=== PATIENT | female | born 1970 | race African-American/Black ===

== ENCOUNTER 2018-05-28 15:52 | Observation (INO) ==
--- NOTE | 2018-05-28 16:46 | ED ---
HPI General Chief Complaint: Neuro Symptoms/Deficit Stated Complaint: Sudden Blindness Time Seen by Provider: 05/28/18 16:23 Source: patient Mode of arrival: ambulatory Limitations: no limitations History of Present Illness HPI Narrative: 47-year-old female that presents to the ED for evaluation of double vision as well as ptosis of the right eyelid. Per patient she has had the drooping of the right eyelid for about 6 months and is becoming more constant. Per patient she went to see her eye doctor today because she has been having some double vision as well as blurriness from the right eye. No symptoms to the left eye. She was seen and evaluated by Dr. Kellogg from [facility] [place] and had a workup for visual examination. Patient was evaluated and per his recommendations he is concerned about possible neurological changes. He did not see anything from the eye standpoint. He actually wrote a note on prescription pad stating that he wants the patient to be evaluated for narrow. He is concerned also because patient has a history of sickle cell disease. Patient denies any pain. Patient denies any other medical issues. Symptoms started since yesterday when she woke up around 6:00 in the morning. Symptoms have continued which is where part of her evaluation by her eye doctor. Denies wearing contacts or glasses. No pain of any kind. No history of CVA or ACS. Has not seen anybody for this. No other medical issues. Related Data Home Medications Medication Instructions Recorded Confirmed hydromorphone 1 mg PO Q6HR PRN 05/28/18 05/28/18 multivitamin 1 cap PO QAM 05/28/18 05/28/18 Allergies Allergy/AdvReac Type Severity Reaction Status Date / Time guaifenesin Allergy Severe Swelling Verified 05/28/18 16:41 Review of Systems ROS: all other systems reviewed are negative [facility] Medical History Medical History Acute hematogenous osteomyelitis of foot (Acute) Sickle cell anemia (Acute) Surgical History Surgical History History of incision and drainage (Acute) Hx of cholecystectomy (Acute) Social History Social History Substance History: No History of Abuse Second Hand Smoke Exposure: No Smoking Status: Never smoker How Often Do You Have a Drink Containing Alcohol: Never Recent Out of Country Travel within the Last 8 Weeks: No Immunization History Tetanus Immunization: >5 Years Exam Narrative Exam Narrative: GENERAL: Well appearing. SKIN: Focused skin assessment warm/dry. HEAD: Atraumatic. Normocephalic. EYES: Pupils equal and round dilated at 6 cm, patient did have an eye exam today. No scleral icterus. No injection or drainage. EOM intact bilaterally. Patient does have ptosis to the right upper eyelid. Peripheral vision intact bilaterally although she does have some deficits especially with the right on the right upper field with double vision. ENT: No nasal bleeding or discharge. Mucous membranes pink and moist. Tongue is midline. No uvula deviation. NECK: Trachea midline. No JVD. CARDIOVASCULAR: Regular rate and rhythm. No murmur appreciated. RESPIRATORY: No accessory muscle use. Clear to auscultation. Breath sounds equal bilaterally. GASTROINTESTINAL: Abdomen soft, non-tender, nondistended. Hepatic and splenic margins not palpable. MUSCULOSKELETAL: No obvious deformities. No clubbing. No cyanosis. No edema. Full range of motion of the upper and lower extremities bilaterally. 2+ pulses bilaterally. NEUROLOGICAL: Awake and alert. No obvious cranial nerve deficits. Motor grossly within normal limits. Normal speech. PSYCHIATRIC: Appropriate mood and affect; insight and judgment normal. Course Initial Documented Vital Signs Temperature 99.4 F 05/28/18 16:11 Pulse Rate 78 05/28/18 16:11 Respiratory Rate 16 05/28/18 16:11 Blood Pressure 147/70 H 05/28/18 16:11 Pulse Oximetry 97 05/28/18 16:11 Last Documented Vital Signs Temperature 98.6 F 05/28/18 20:00 Pulse Rate 65 05/28/18 20:00 Respiratory Rate 16 05/28/18 20:00 Blood Pressure 149/68 H 05/28/18 20:00 Pulse Oximetry 98 05/28/18 20:00 Medical Decision Making ELVIN Attestation ELVIN supervised visit: Yes Attestation: I, Dr. Rose, have reviewed the advance practice practitioner's documentation and am in agreement, met with the patient face to face, made the diagnosis, and the medical decision making was done by me. *My assessment and Findings: Patient is a 47-year-old female who presents with complaint of vision changes for greater than last 24 hours. She reports double vision which worsens with the right eye when she looks towards the right. At rest she appears as though she has a nerve palsy but extraocular movements are actually intact. No numbness nor weakness to the extremities and no dysmetria. Visual jimenez are also intact. She was seen by an training consultant prior to arrival who is been sent her here. She has been admitted for stroke/TIA workup. [facility] Narrative Medical decision making narrative: 47-year-old female that presents to the ED for evaluation of neurological deficits. Patient was properly examined and was found to have signs and symptoms of unclear etiology. There is some concern for CVA has patient does have sickle cell and apparently has new visual deficits. At this time labs and imaging were ordered. No stroke level because patient has symptoms for more than 24 hours and symptoms started around 6:00 last morning. Labs and imaging showed no sign of acute disease at this time. Recommendation at this time is for admission. Case was discussed with my attending who agrees with plan. Case discussed with the patient agrees with plan. Patient was admitted to Dr. Lema admission to his service for CVA and TIA workup. Medical Screen Exam Complete: Yes Emergency Medical Condition: Yes Differential Diagnosis Differential Diagnosis: TIA versus CVA versus hemianopsia versus tumor Medical Records Medical records reviewed: Yes I reviewed the patient's medical records. Lab Data Lab results reviewed: Yes I reviewed the patient's lab results. Result diagrams: 05/28/18 16:45 05/28/18 16:45 Lab Results 05/28/18 05/28/18 05/28/18 Range/Units 16:45 16:45 16:45 WBC 12.4 H (4.0-11.0) th/mm3 RBC 2.10 L (4.00-5.30) mil/mm3 Hgb 8.3 L (11.6-15.3) gm/dL Hct 23.0 L (35.0-46.0) % MCV 109.5 H (80.0-100.0) fL MCH 39.6 H (27.0-34.0) pg MCHC 36.1 H (32.0-36.0) % RDW 22.4 H (11.6-17.2) % Plt Count 534 H (150-450) th/mm3 MPV 7.0 (7.0-11.0) fL Prelim Diff (Auto) Slide review pending Neut % (Auto) 53.8 (16.0-70.0) % Lymph % (Auto) 34.0 (9.0-44.0) % Waller % (Auto) 9.4 H (0.0-8.0) % Eos % (Auto) 1.7 (0.0-4.0) % Baso % (Auto) 1.1 (0.0-2.0) % Neut # (Auto) 6.7 (1.8-7.7) th/mm3 Lymph # (Auto) 4.2 (1.0-4.8) th/mm3 Waller # (Auto) 1.2 H (0.0-0.9) th/mm3 Eos # (Auto) 0.2 (0.0-0.4) th/mm3 Baso # (Auto) 0.1 (0.0-0.2) th/mm3 WBC Differential Manual diff final Seg Neuts % (Manual) 54 (16-70) % Lymphocytes % (Manual) 33 (9-44) % Monocytes % (Manual) 11 H (0-8) % Eosinophils % (Manual) 1 (0-4) % Basophils % (Manual) 1 (0-2) % Abs Neuts (Manual) 6.7 (1.8-7.7) th/mm3 Nucleated RBCs/100 WBC 6 H (0-0) /100 WBC Differential Comment . Toxic Vacuolation Present H (None) Platelet Estimate High H (Normal) Platelet Morphology Enlarged H (Normal) Polychromasia 2.5 H (0.0-1.9) % Sickle Cells 2+ H (None) Stomatocytes 1+ H (None) Retic Count 16.1 H (0.4-3.0) % Absolute Retic 337.3 H (20.0-150.0) mil/L PT 11.4 (9.8-11.6) sec INR 1.1 Ratio APTT 20.3 L (23.4-31.7) sec Sodium 141 (136-145) meq/L Potassium 3.4 L (3.5-5.1) meq/L Chloride 110 H (98-107) meq/L Carbon Dioxide 22.9 (21.0-32.0) meq/L Anion Gap 8 (5-15) meq/L BUN 8 (7-18) mg/dL Creatinine 0.63 (0.50-1.00) mg/dL Estimated GFR Greater than 89 (>89) mL/min Random Glucose 87 (74-106) mg/dL Calcium 9.2 (8.5-10.1) mg/dL Total Creatine Kinase 72 (26-192) U/L Troponin I Less than 0.02 L (0.02-0.05) ng/mL 05/28/18 Range/Units 16:45 WBC (4.0-11.0) th/mm3 RBC (4.00-5.30) mil/mm3 Hgb (11.6-15.3) gm/dL Hct (35.0-46.0) % MCV (80.0-100.0) fL MCH (27.0-34.0) pg MCHC (32.0-36.0) % RDW (11.6-17.2) % Plt Count (150-450) th/mm3 MPV (7.0-11.0) fL Prelim Diff (Auto) Neut % (Auto) (16.0-70.0) % Lymph % (Auto) (9.0-44.0) % Waller % (Auto) (0.0-8.0) % Eos % (Auto) (0.0-4.0) % Baso % (Auto) (0.0-2.0) % Neut # (Auto) (1.8-7.7) th/mm3 Lymph # (Auto) (1.0-4.8) th/mm3 Waller # (Auto) (0.0-0.9) th/mm3 Eos # (Auto) (0.0-0.4) th/mm3 Baso # (Auto) (0.0-0.2) th/mm3 WBC Differential Seg Neuts % (Manual) (16-70) % Lymphocytes % (Manual) (9-44) % Monocytes % (Manual) (0-8) % Eosinophils % (Manual) (0-4) % Basophils % (Manual) (0-2) % Abs Neuts (Manual) (1.8-7.7) th/mm3 Nucleated RBCs/100 WBC (0-0) /100 WBC Differential Comment Toxic Vacuolation (None) Platelet Estimate (Normal) Platelet Morphology (Normal) Polychromasia (0.0-1.9) % Sickle Cells (None) Stomatocytes (None) Retic Count Cancelled (0.4-3.0) % Absolute Retic Cancelled (20.0-150.0) mil/L PT (9.8-11.6) sec INR Ratio APTT (23.4-31.7) sec Sodium (136-145) meq/L Potassium (3.5-5.1) meq/L Chloride (98-107) meq/L Carbon Dioxide (21.0-32.0) meq/L Anion Gap (5-15) meq/L BUN (7-18) mg/dL Creatinine (0.50-1.00) mg/dL Estimated GFR (>89) mL/min Random Glucose (74-106) mg/dL Calcium (8.5-10.1) mg/dL Total Creatine Kinase (26-192) U/L Troponin I (0.02-0.05) ng/mL Imaging Data Attestation: I personally reviewed and interpreted this imaging study as follows : Radiologist's impression: Head CT 05/28/18 16:23 CONCLUSION: 1. Negative noncontrast head CT. . Discharge Plan Discharge Disposition Patient Disposition: ED Admit(ED Internal Use Only) Discharge Order Discharge Orders: ED Use Only Admit Order (Routine); Ordered 05/28/18 Ordered By: Adan Hong Discharge Details Diagnosis: Transient cerebral ischemia Physicians Team ED Provider: Makeda Rose ED Midlevel Provider: Adan Hong Primary Care Provider: Primary Care Ramakrishnai,Adriane Attending Provider: Joseluis Lema Other Providers: Williams Mclean ED Status: Left Department Discharge Information Discharge Date/Time: 05/28/18 20:24
--- NOTE | 2018-05-28 17:08 | CT ---
EXAM DATE: 05/28/2018 5:05 PM EST AGE/SEX: 47 years / Female INDICATIONS: Vision problems. Headache. CLINICAL DATA: This is the patient's initial encounter. Patient reports that signs and symptoms have been present for 1 day and indicates a pain score of 5/10. MEDICAL/SURGICAL HISTORY: None. None. RADIATION DOSE: 34.64 CTDI (mGy) COMPARISON: No prior exams available for comparison. TECHNIQUE: CT of the head without contrast. Using automated exposure control and adjustment of the mA and/or kV according to patient size, radiation dose was kept as low as reasonably achievable to ob tain optimal diagnostic quality images. DICOM format image data is available electronically for revi ew and comparison. FINDINGS: Cerebrum: The ventricles are normal for age. No evidence of midline shift, mass lesion, hemorrhage or acute infarction. No extraaxial fluid collections are seen. Posterior Fossa: The cerebellum and brainstem are intact. The 4th ventricle is midline. The cerebe llopontine angle is unremarkable. Extracranial: The visualized portion of the orbits is intact. Skull: The calvaria is intact. No evidence of skull fracture. CONCLUSION: 1. Negative noncontrast head CT. . Electronically signed by: Butch Boateng MD 05/28/2018 5:06 PM EST
[2018-05-28 17:35] LABS: Baso # (Auto) 0.1 th/mm3 (0.0-0.2); Baso % (Auto) 1.1 % (0.0-2.0); Eos # (Auto) 0.2 th/mm3 (0.0-0.4); Eos % (Auto) 1.7 % (0.0-4.0); Hemoglobin 8.3 gm/dL (11.6-15.3); Lymph # (Auto) 4.2 th/mm3 (1.0-4.8); Mean Corpuscular Hemoglobin 39.6 pg (27.0-34.0); Mean Corpuscular Volume 109.5 fL (80.0-100.0); Mono # (Auto) 1.2 th/mm3 (0.0-0.9); Mono % (Auto) 9.4 % (0.0-8.0); Neut # (Auto) 6.7 th/mm3 (1.8-7.7); Neut % (Auto) 53.8 % (16.0-70.0); Platelet Count 534 th/mm3 (150-450); Red Cell Distribution Width 22.4 % (11.6-17.2); Reticulocyte Percent 16.1 % (0.4-3.0); White Blood Count 12.4 th/mm3 (4.0-11.0)
[2018-05-28 17:50] LABS: Activated Partial Thrombo Time 20.3 sec (23.4-31.7); INR 1.1 Ratio; Prothrombin Time 11.4 sec (9.8-11.6)
[2018-05-28 17:55] LABS: Mean Corpuscular HGB Conc 36.1 % (32.0-36.0)
[2018-05-28 18:00] LABS: Anion Gap 8 meq/L (5-15); Blood Urea Nitrogen 8 mg/dL (7-18); Calcium 9.2 mg/dL (8.5-10.1); Carbon Dioxide 22.9 meq/L (21.0-32.0); Chloride 110 meq/L (98-107); Glomerular Filtration Rate Greater Than 89 mL/min (>89); Glucose,Random 87 mg/dL (74-106); Potassium 3.4 meq/L (3.5-5.1); Sodium 141 meq/L (136-145)
[2018-05-28 18:26] LABS: Creatine Kinase 72 U/L (26-192)
[2018-05-28] MEDS ORDERED: Dextrose 50% in Water 50 ML Vial IV.PUSH PRN (18:41)
[2018-05-28 18:47] LABS: Eosinophils 1 % (0-4); Lymphocytes 33 % (9-44); Monocytes 11 % (0-8); Tallied Nucleated RBC 6 (0-0)
[2018-05-28 18:49] LABS: Toxic Vacuolation Present
[2018-05-28] MEDS ORDERED: Bisacodyl 10 MG Supp RECTAL PRN (18:49)
[2018-05-28] MEDS ORDERED: Acetaminophen 325 MG Tablet PO PRN (18:49)
[2018-05-28 18:56] LABS: Polychromasia 2.5 % (0.0-1.9)
[2018-05-28 18:57] LABS: Sickle Cells 2+; Stomatocytes 1+
--- NOTE | 2018-05-28 18:58 | P.HPIM ---
History of Present Illness Primary Care Physician: No Primary Care Physician Chief Complaint: Double vision History of Present Illness: This is a 47-year-old female with a history of sickle cell disease. She was sent by her integration technician to be evaluated for possible stroke. Patient complained of blurred vision for the past 2 days and today complained of double vision. She also has intermittent ptosis involving the right eye for the past 6 months. She had a formal evaluation by Dr. Kellogg who felt she needs neurologic workup. Patient found to have normal eye findings. Denies fever, chills, dizziness, headache, swallowing difficulty, slurred speech, nausea, numbness and no focal weakness. Head CT without acute cardio findings. EKG independently reviewed by me with no sinus rhythm no ST changes.All other systems reviewed negative Review of Systems Review of Systems: all other systems reviewed are negative [facility] Medical History Medical History Acute hematogenous osteomyelitis of foot (Acute) Sickle cell anemia (Acute) Surgical History Surgical History History of incision and drainage (Acute) Hx of cholecystectomy (Acute) Family History Family History Other Hypertension Social History Social History Substance History: No History of Abuse Smoking Status: Never smoker How Often Do You Have a Drink Containing Alcohol: Never Recent Out of Country Travel within the Last 8 Weeks: No Immunization History Tetanus Immunization: >5 Years Medications and Allergies Allergies Allergy/AdvReac Type Severity Reaction Status Date / Time guaifenesin Allergy Severe Swelling Verified 05/28/18 16:41 Home Medications Medication Instructions Recorded Confirmed Type hydromorphone 1 mg PO Q6HR PRN 05/28/18 05/28/18 History multivitamin 1 cap PO QAM 05/28/18 05/28/18 History Active Medications: Active Medications Acetaminophen (Tylenol) 650 mg PO Q4H PRN PRN Reason: Temp > 100.4 Al Hydroxide/Mg Hydroxide (Milk Of Magnpeace Liq) 30 ml PO Q12H PRN PRN Reason: Mild Constipation Aspirin (Aspirin) 325 mg PO DAILY CARRI Bisacodyl (Dulcolax Supp) 10 mg RECTAL DAILY PRN PRN Reason: SEVERE CONSITIPATION Dextrose (D50w Vial) 50 ml IV.PUSH UNSCH PRN PRN Reason: PER HYPOGLYCEMIA PROTOCOL Enalaprilat (Vasotec Inj) 1.25 mg IV.PUSH Q4H PRN PRN Reason: For SBP > 220 or DBP > 120 Folic Acid (Folic Acid) 1 mg PO DAILY CARRI Glucagon (Glucagon Inj) 1 mg OTHER UNSCH PRN PRN Reason: for Hypoglycemia Protocol Sodium Chloride (Ns Inj) 1,000 mls @ 70 mls/hr IV.CONT .[id number] [facility] Insulin Aspart (Novolog Insulin Correctional Sugar Inj) 0 unit SQ ACHS CARRI; Protocol Lactulose (Lactulose Liq) 30 ml PO DAILY PRN PRN Reason: SEVERE CONSITIPATION Multivitamins (Theragran) 1 tab PO DAILY CARRI Ondansetron HCl (Zofran Inj) 4 mg IV.PUSH Q6H PRN PRN Reason: NAUSEA OR VOMITING Potassium Chloride (K-Dur) 40 meq PO ONCE ONE Stop: 05/28/18 19:01 Senna/Docusate Sodium (Ciera-Colace) 1 tab PO BID [facility] Sennosides (Senokot) 17.2 mg PO Q12H PRN PRN Reason: Moderate Constipation Sodium Chloride (Ns Flush) 2 ml IV.FLUSH BID CARRI Sodium Chloride (Ns Flush) 2 ml IV.FLUSH UNSCH PRN PRN Reason: FLUSH AFTER USING IV ACCESS Physical Exam Vital signs: Last Vital Signs Temp 99.4 F 05/28/18 16:11 Pulse 68 05/28/18 18:45 Resp 18 05/28/18 18:45 BP 155/72 H 05/28/18 18:45 Pulse Ox 95 05/28/18 18:45 Intake & Output 05/26/18 05/27/18 05/28/18 05/29/18 06:59 06:59 06:59 06:59 Weight 63.503 kg Narrative: GENERAL: Well-developed, well-nourished in no distress SKIN: Warm and dry. HEAD: Atraumatic. Normocephalic. EYES: Pupils equal and round. No scleral icterus. No injection or drainage. ENT: No nasal bleeding or discharge. Mucous membranes pink and moist. NECK: Trachea midline. No JVD. CARDIOVASCULAR: Regular rate and rhythm. RESPIRATORY: No accessory muscle use. Clear to auscultation. Breath sounds equal bilaterally. GASTROINTESTINAL: Abdomen soft, non-tender, nondistended. MUSCULOSKELETAL: Extremities without clubbing, cyanosis, or edema. No obvious deformities. NEUROLOGICAL: Awake and alert. Right eye ptosis. Motor grossly within normal limits. Five out of 5 muscle strength in the arms and legs. Normal speech. PSYCHIATRIC: Appropriate mood and affect; insight and judgment normal. Results Labs CBC & Chem 7: 05/28/18 16:45 05/28/18 16:[address] 05/28/18 16:23 CONCLUSION: 1. Negative noncontrast head CT. . Caprini VTE Risk Assessment Caprini VTE Risk Assessment: No/Low Risk (score <= 1) Caprini Risk Assessment Model: Point Value = 1 Point Value = 2 Point Value = 3 Point Value = 5 Age 41-60 Minor surgery BMI > 25 kg/m2 Swollen legs Varicose veins or History of unexplained or recurrent spontaneous Oral contraceptives or hormone replacement Sepsis (< 1 month) Serious lung disease, including pneumonia (< 1 month) Abnormal pulmonary function Acute myocardial infarction Congestive heart failure (< 1 month) History of inflammatory bowel disease Medical patient at bed rest Age 61-74 Arthroscopic surgery Major open surgery (> 45 min) Laparoscopic surgery (> 45 min) Malignancy Confined to bed (> 72 hours) Immobilizing plaster cast Central venous access Age >= 75 History of VTE Family history of VTE Factor V Leiden Prothrombin [id number] Lupus anticoagulant Anticardiolipin antibodies Elevated serum homocysteine Heparin-induced thrombocytopenia Other congenital or acquired thrombophilia Stroke (< 1 month) Elective arthroplasty Hip, pelvis, or leg fracture Acute spinal cord injury (< 1 month) Prophylaxis Regimen: Total Risk Factor Score Risk Level Prophylaxis Regimen 0-1 Low Early ambulation 2 Moderate Order ONE of the following: *Sequential Compression Device (SCD) *Heparin 5000 units SQ BID 3-4 Higher Order ONE of the following medications: *Heparin 5000 units SQ TID *Enoxaparin/Lovenox 40 mg SQ daily (WT < 150 kg, CrCl > 30 mL/min) *Enoxaparin/Lovenox 30 mg SQ daily (WT < 150 kg, CrCl > 10-29 mL/min) *Enoxaparin/Lovenox 30 mg SQ BID (WT < 150 kg, CrCl > 30 mL/min) AND/OR *Sequential Compression Device (SCD) 5 or more Highest Order ONE of the following medications: *Heparin 5000 units SQ TID (Preferred with Epidurals) *Enoxaparin/Lovenox 40 mg SQ daily (WT < 150 kg, CrCl > 30 mL/min) *Enoxaparin/Lovenox 30 mg SQ daily (WT < 150 kg, CrCl > 10-29 mL/min) *Enoxaparin/Lovenox 30 mg SQ BID (WT < 150 kg, CrCl > 30 mL/min) AND *Sequential Compression Device (SCD) Assessment and Plan Plan This is a 47-year-old female with a history of sickle cell disease. She presents with visual complaints, blurred vision, double vision and ptosis of the right eye. She was sent by her integration technician to be evaluated for possible stroke. Head CT without acute cardio findings. Right eye ptosis with double/blurred vision in a patient with a history of sickle cell disease. Patient will be have neurologic workup which will include MRI of the head, MRA of the head, MRA of the neck, echocardiogram, lipid profile and A1c. We will also evaluate for myasthenia gravis. Start aspirin. Consult neurology, PT and speech therapy. We will also obtain swallowing evaluation. Urine drug screen Leukocytosis likely reactive. Will monitor Hypokalemia potassium 3.4. Replace with 40 mg p.o. potassium check magnesium Last monthly period May 21, 2018 DVT prophylaxis with SCD and early ambulate
[2018-05-28] MEDS: Aspirin 325 MG Tablet PO SCH (19:57)
[2018-05-29] MEDS: Senna/Docusate Sodium 8.6/50 MG Tablet PO SCH ×3 (00:40→21:43)
[2018-05-29] MEDS: Insulin NovoLOG Aspart Correctional Sugar Inj SQ SCH ×5 (00:40→21:59)
[2018-05-29] MEDS: Sod Chloride 0.9% Inj 1,000 ML IV.CONT SCH ×2 (00:51→11:00)
[2018-05-29 04:35] LABS: Amphetamine Screen,Urine Neg (Neg); Barbiturate Screen,Urine Neg (Neg); Cannabinoid Screen,Urine Neg (Neg); Cocaine Screen,Urine Neg (Neg)
[2018-05-29 04:37] LABS: Opiate Screen,Urine Neg (Neg)
--- NOTE | 2018-05-29 07:01 | ECG ---
Date Performed: 05/28/2018 Time Performed: 18:42:34 PTAGE: 47 years EKG: Sinus rhythm WITH SINUS ARRHYTHMIA NORMAL ECG NO PREVIOUS TRACING DOCTOR: Sebastian Dela Cruz Interpretating Date/Time 05/29/2018 07:00:26
[2018-05-29 07:57] LABS: Chol/HDL Ratio 3.12 Ratio; HDL Cholesterol 45.4 mg/dL (40.0-60.0)
[2018-05-29 08:45] LABS: Mean Corpuscular HGB Conc 35.1 % (32.0-36.0); Mean Corpuscular Volume 108.5 fL (80.0-100.0); Mean Platelet Volume 6.9 fL (7.0-11.0); Platelet Count 463 th/mm3 (150-450); Red Cell Distribution Width 21.1 % (11.6-17.2); White Blood Count 10.9 th/mm3 (4.0-11.0)
[2018-05-29 08:57] LABS: Hematocrit 20.6 % (35.0-46.0); Hemoglobin 7.2 gm/dL (11.6-15.3)
[2018-05-29] MEDS ORDERED: Gadobutrol PF 10 MMOL/10 ML Vial (for RAD) IV.SIG ONE (09:05)
--- NOTE | 2018-05-29 09:12 | MR ---
EXAM DATE: 05/29/2018 9:04 AM EST AGE/SEX: 47 years / Female INDICATIONS: CVA. Right sided weakness and blurry vision. CLINICAL DATA: This is the patient's initial encounter. Patient reports that signs and symptoms have been present for 1 day and indicates a pain score of 5/10. MEDICAL/SURGICAL HISTORY: None. Cholecystectomy. Abscess drainage. [place] [facility] [place]. . TECHNIQUE: 3D [id number] MRA was performed. Source images, multiplanar STS MIP, and 3D volum e MIP reconstructions were reviewed. FINDINGS: There is excellent visualization of the major intracranial arteries out to the second-order branch ve ssels. There is no evidence for aneurysm, vessel truncation or stenosis, and no evidence for vascula r malformation. CONCLUSION: 1. Negative MRA Cow ([place]) non contrast. 2. No evidence of significant steno-occlusive disease, aneurysm or vasculopathy. Electronically signed by: Juan R Spears MD 05/29/2018 9:11 AM EST
[2018-05-29 09:22] LABS: Blood Urea Nitrogen 7 mg/dL (7-18); Calcium 8.9 mg/dL (8.5-10.1); Carbon Dioxide 23.6 meq/L (21.0-32.0); Glomerular Filtration Rate Greater Than 89 mL/min (>89); Glucose,Random 81 mg/dL (74-106)
--- NOTE | 2018-05-29 09:50 | MR ---
EXAM DATE: 05/29/2018 9:38 AM EST AGE/SEX: 47 years / Female INDICATIONS: CVA. CLINICAL DATA: This is the patient's initial encounter. Patient reports that signs and symptoms have been present for 1 day and indicates a pain score of 4/10. MEDICAL/SURGICAL HISTORY: None. Cholecystectomy. Abscess drainage. COMPARISON: [facility] [place], MRA HEAD W/O CONTRAST, 05/29/2018. . TECHNIQUE: Multiplanar, multisequence examination of the brain was performed without and with 10 ml G adavist (gadobutrol) contrast as a single exam dose. FINDINGS: Cerebrum: The ventricles are normal for age. No evidence of midline shift, mass lesion, hemorrhage or acute infarction. No extraaxial fluid collections are seen. A T1 hypointense nodule is identified within the right side of the sella turcica. There is slight leftward displacement of the infundibulu m. There is no extra sellar extension. White Matter: No significant signal abnormalities are seen in the white matter. Posterior Fossa: The cerebellum and brainstem are intact. The 4th ventricle is midline. The cerebel lopontine angle is unremarkable. The cerebellar tonsils are normal in position. Diffusion Imaging: No focal areas of restricted diffusion are seen. No evidence of acute infarction . Extracranial: Altered signal intensity is identified in the calvarium. The bone marrow has lost its normal fatty marrow signal. There are no destructive changes Post Contrast: No abnormal areas of parenchymal or dural enhancement. No evidence of blood-brain ba rrier breakdown. CONCLUSION: 1. Pituitary nodule which is incompletely characterized. Focused MRI pituitary gland without and wit h contrast should be considered for further evaluation. This can be performed as an outpatient. 2. No evidence of acute infarct, hemorrhage, mass or edema. 3. T1 hypointense bone marrow throughout the calvarium which may indicate infiltrate to red marrow c onversion. This may indicate the presence of underlying anemia. Electronically signed by: Juan R Spears MD 05/29/2018 9:49 AM EST
--- NOTE | 2018-05-29 09:55 | MR ---
EXAM DATE: 05/29/2018 9:39 AM EST AGE/SEX: 47 years / Female INDICATIONS: TIA. CLINICAL DATA: This is the patient's initial encounter. Patient reports that signs and symptoms have been present for 1 day and indicates a pain score of 5/10. MEDICAL/SURGICAL HISTORY: None. Cholecystectomy. Abscess drainage. COMPARISON: No prior exams available for comparison. TECHNIQUE: 10 ml Gadavist (gadobutrol) contrast infused MRA (single exam dose) of the extracranial circulation was performed using a neurovascular coil. Postprocessing was performed, including rotati ng sub-volume maximum intensity projections of each carotid artery, rotating full-volume maximum inte nsity projections of both carotid arteries, sagittal and coronal sliding thin-slab reformations of ea ch carotid artery, and left oblique sliding thin-slab reformation through the aortic arch to include the origin of the arch branch vessels. FINDINGS: Aortic Arch : There is a two-vessel origin of the great vessels from the aorta. The left common car otid and innominate arteries have a common trunk No evidence of ostial narrowing. Right Carotid : The common carotid artery is intact. The carotid bulb has a normal configuration wi thout ulceration or narrowing. The internal carotid artery lumen is smooth without stenosis. The ex ternal carotid artery is intact. Left Carotid : The common carotid artery is intact. The carotid bulb has a normal configuration wit hout ulceration or narrowing. The internal carotid artery lumen is smooth without stenosis. The ext ernal carotid artery is intact. Vertebrals : The vertebral arteries have a symmetric diameter. No stenotic lesions are seen. CONCLUSION: Negative MRA Carotids. Percent stenosis is calculated using the diameter of the stenotic region over the diameter of the nor mal distal internal carotid artery Electronically signed by: Juan R Spears MD 05/29/2018 9:54 AM EST
[2018-05-29 09:57] LABS: Anion Gap 6 meq/L (5-15); Chloride 113 meq/L (98-107); Potassium 4.1 meq/L (3.5-5.1); Sodium 143 meq/L (136-145)
[2018-05-29] MEDS: Folic Acid 1 MG Tablet PO SCH (10:58)
[2018-05-29] MEDS: Aspirin 325 MG Tablet PO SCH (10:59)
--- NOTE | 2018-05-29 13:10 | ECHRPT ---
Indication: CVA/TIA CONCLUSIONS The left ventricular systolic function is normal with an estimated ejection fraction in the range of 55-60%. No regional wall motion abnormalities are present. Mild mitral valve regurgitation. There is trace tricuspid valve regurgitation. BP: / HR: Rhythm: MEASUREMENTS (Male / Female) Normal Values Technical Quality:Good 2D ECHO LV Diastolic Diameter PLAX 4.5 cm 4.2 - 5.9 / 3.9 - 5.3 cm LV Systolic Diameter PLAX 3.2 cm IVS Diastolic Thickness 1.0 cm 0.6 - 1.0 / 0.6 - 0.9 cm LVPW Diastolic Thickness 1.0 cm 0.6 - 1.0 / 0.6 - 0.9 cm LV Relative Wall Thickness 0.4 RV Internal Dim ED PLAX 3.0 cm LVOT Diameter 1.9 cm Aortic Root Diameter 2.2 cm LA Systolic Diameter LX 3.5 cm 3.0 - 4.0 / 2.7 - 3.8 cm M-MODE AV Cusp Separation MM 1.8 cm DOPPLER AV Peak Velocity 207.0 cm/s AV Peak Gradient 17.1 mmHg LVOT Peak Velocity 149.0 cm/s LVOT Peak Gradient 8.9 mmHg AV Area Cont Eq pk 2.0 cm Mitral E Point Velocity 117.0 cm/s Mitral A Point Velocity 117.0 cm/s Mitral E to A Ratio 1.0 LV E' Lateral Velocity 12.5 cm/s Mitral E to LV E' Lateral Ratio 9.4 LV E' Septal Velocity 7.2 cm/s Mitral E to LV E' Septal Ratio 16.2 TR Peak Velocity 231.0 cm/s TR Peak Gradient 21.3 mmHg Right Atrial Pressure 10.0 mmHg Pulmonary Artery Systolic Pressu 31.3 mmHg Right Ventricular Systolic Press 31.3 mmHg PV Peak Velocity 122.0 cm/s PV Peak Gradient 6.0 mmHg FINDINGS LEFT VENTRICLE Normal left ventricular size. Wall thickness is measured at the upper limits of normal. The left ventricular systolic function is normal with an estimated ejection fraction in the range of 55-60%. No regional wall motion abnormalities are present. RIGHT VENTRICLE Normal right ventricular size and systolic function. LEFT ATRIUM The left atrial size is normal. RIGHT ATRIUM The right atrial size is normal. ATRIAL SEPTUM Normal atrial septal thickness without atrial level shunting by limited color doppler interrogation. AORTA The aortic root and proximal ascending aorta are normal in size on limited imaging. MITRAL VALVE Structurally normal mitral valve. No mitral valve stenosis. Mild mitral valve regurgitation. AORTIC VALVE Trileaflet aortic valve. No aortic valve stenosis or regurgitation. TRICUSPID VALVE Structurally normal tricuspid valve. No tricuspid valve stenosis. There is trace tricuspid valve regurgitation. The estimated pulmonary arterial pressure is 31 mmHg. PULMONARY VALVE No pulmonary valve regurgitation or stenosis. VESSELS The inferior vena cava is normal in size. PERICARDIUM No pericardial effusion. Jericho Ordonez DO (Electronically Signed) Final Date:29 May 2018 13:10
--- NOTE | 2018-05-29 17:56 | P.PNIM ---
Subjective Interval history: Patient seen and evaluated this morning at bedside. Patient reports that she is feeling better and denies any current blurry vision but says that she has had these intermittent periods of visual disturbances. Patient currently denies chest pain, palpitations, shortness of breath, nausea, vomiting, diarrhea, abdominal pain. Patient reports that the lateral part of her eyeball feels " hard" but is unable to explain exactly what she means. Patient reports that she went to see an stock turner and was told to immediately go to the hospital because they did not think that her symptoms were related to her eye and that she may have a neurological event occurring Physical Exam Vital signs: Last Vital Signs Temp 98.4 F 05/29/18 15:30 Pulse 78 05/29/18 17:26 Resp 16 05/29/18 15:30 BP 129/73 05/29/18 15:30 Pulse Ox 94 L 05/29/18 15:30 Intake & Output 05/27/18 05/28/18 05/29/18 05/30/18 06:59 06:59 06:59 06:59 Intake Total 1000 / 1000 Balance 1000 / 1000 Weight 63.503 kg general: No acute distress, conversational HEENT: EOMI, PERRLA, atraumatic Cardiovascular: S1/S2. Regular rate and rhythm. No evidence of a regular rhythm on auscultation Respiratory: Clear to auscultation anteriorly and posteriorly without wheezing, rales, or rhonchi. No intercostal muscle use Gastrointestinal: Soft, nontender, nondistended, no guarding or rebound appreciated Extremity: 2+ bilateral radial pulse Neurology: Sensation intact upper and lower extreme knee bilaterally. Small ptosis over right eyelid, no facial droop, no slurred speech, power 5/5 throughout Results Labs CBC & Chem 7: 05/29/18 06:45 05/29/18 06:45 Imaging Imaging: Impressions Neck MRA 05/29/18 00:00 CONCLUSION: Negative MRA Carotids. Percent stenosis is calculated using the diameter of the stenotic region over the diameter of the normal distal internal carotid artery Head MRI 05/29/18 17:15 CONCLUSION: 1. Pituitary nodule which is incompletely characterized. Focused MRI pituitary gland without and with contrast should be considered for further evaluation. This can be performed as an outpatient. 2. No evidence of acute infarct, hemorrhage, mass or edema. 3. T1 hypointense bone marrow throughout the calvarium which may indicate infiltrate to red marrow conversion. This may indicate the presence of underlying anemia. Head MRA 05/29/18 17:15 CONCLUSION: 1. Negative MRA Cow ([place]) non contrast. 2. No evidence of significant steno-occlusive disease, aneurysm or vasculopathy. Assessment and Plan (1) Blurry vision, bilateral: Code(s): H53.8 - Other visual disturbances Status: Acute (2) Sickle cell anemia: Code(s): D57.1 - Sickle-cell disease without crisis Status: Acute Plan Patient is a 47-year-old female with past medical history of sickle cell anemia presenting to emergency department for blurry vision Hematology: Sickle cell anemia I suspect the patient episode of blurry vision may be a transient episode of vaso-occlusive pathology to retinal vessels. Patient reports that her previous home service advisor recently . Will need outpatient follow-up with hematology on discharge Folic acid 1 mg daily Hydroxyurea will need to be initiated on outpatient follow-up as it reduces the incidence of acute painful episodes and hospitalization rates, and prolongs survival. Ophthalmology consultation to evaluate for retinopathy in the setting of sickle cell anemia Pain control Imaging thus far has been negative to evaluate for possible acute neurological event CODE STATUS: Full code DVT prophylaxis Disposition: [facility] with anticipated discharge in 24-48 hours after clearance by ophthalmology Progress Note: Quality VTE Deep Vein Thrombosis/Pulmonary Embolism Present on Admission: No
[2018-05-29] MEDS: Morphine Inj 4 MG/ML Vial IV.PUSH PRN ×2 (17:58→21:44)
--- NOTE | 2018-05-29 21:31 | MB ---
cc: Williams Mclean MD, PhD DATE: 05/29/2018 REASON FOR CONSULTATION: Double vision. HISTORY OF PRESENT ILLNESS: Ms. Dozier is a very nice 47-year-old female who began noticing ptosis in the right eye about 6 months ago. Yesterday, she noted double vision, where she had a vertical diplopia which improved if she covered one eye or the other. She had no other neurologic symptoms. PAST MEDICAL HISTORY: She has history of sickle cell disease, osteomyelitis, right foot, cholecystectomy. CURRENT MEDICATIONS: 1. Tylenol. 2. Aspirin. 3. Dulcolax. 4. Lovenox. 5. Glucagon. 6. Sliding scale insulin. NEUROLOGICAL EXAMINATION: VITAL SIGNS: Blood pressure is 120/58, pulse is 80, respiratory rate is 16, temperature 98 degrees. HIGHER CORTICAL FUNCTION: Normal. Cranial nerves: She has ptosis on the right. On right lateral gaze she has some nystagmus in the right eye. There is a questionable left third nerve palsy, i.e., medial rectus palsy. Other cranial nerves are intact. Motor exam is normal. Reflexes symmetric. IMAGING STUDIES: MRI brain is within normal limits. MRA of the brain is normal. NECK MRA was normal as well. LABORATORY DATA: The white count is 12,400, hemoglobin 8.3, hematocrit 23%, platelet count 534,000. Sodium is 143, potassium 4.1, chloride 113, CO2 23.6, BUN 7, creatinine 0.58, GFR is greater than 89, glucose 119, LDL 75, cholesterol 142, triglycerides 110. Tox screen negative. IMPRESSION: Intermittent diplopia with right-sided ptosis. Rule out ocular myasthenia gravis. RECOMMENDATION: Myasthenia antibodies have already been ordered earlier this morning. We will follow up on this and we will institute a trial of Mestinon 60 mg t.i.d. Also, check thyroid, rule out thyroid eye disease. Check a B12 level as well. Williams Mclean MD, PhD MIMI/ct , 07:50 PM , 07:56 PM
[2018-05-29] MEDS: Enoxaparin Inj 40 MG/0.4 ML Syringe SQ SCH (21:43)
[2018-05-29] MEDS: Pyridostigmine Bromide 60 MG Tablet PO SCH (21:43)
[2018-05-29 22:19] LABS: Free T4 (Free Thyroxine) 0.96 ng/dL (0.76-1.46); Thyroid Stimulating Hormone 5.29 uIU/mL (0.358-3.740)
[2018-05-30] MEDS: Sod Chloride 0.9% Inj 1,000 ML IV.CONT SCH ×2 (00:36→03:39)
[2018-05-30] MEDS: Pyridostigmine Bromide 60 MG Tablet PO SCH ×2 (06:19→13:15)
[2018-05-30 08:02] VITALS: RESP 16
[2018-05-30] MEDS: Folic Acid 1 MG Tablet PO SCH (09:16)
[2018-05-30] MEDS: Enoxaparin Inj 40 MG/0.4 ML Syringe SQ SCH (09:16)
[2018-05-30] MEDS: Aspirin 325 MG Tablet PO SCH (09:16)
[2018-05-30] MEDS: Insulin NovoLOG Aspart Correctional Sugar Inj SQ SCH ×2 (09:16→11:56)
[2018-05-30] MEDS: Senna/Docusate Sodium 8.6/50 MG Tablet PO SCH (09:16)
[2018-05-30 11:20] LABS: Hemoglobin 7.5 gm/dL (11.6-15.3); Mean Corpuscular HGB Conc 35.7 % (32.0-36.0); Mean Corpuscular Hemoglobin 38.4 pg (27.0-34.0); Mean Corpuscular Volume 107.5 fL (80.0-100.0); Platelet Count 470 th/mm3 (150-450); Red Blood Count 1.96 mil/mm3 (4.00-5.30); Red Cell Distribution Width 20.8 % (11.6-17.2); White Blood Count 14.7 th/mm3 (4.0-11.0)
[2018-05-30 11:44] LABS: Lactate Dehydrogenase 408 U/L (84-246)
[2018-05-30 11:45] VITALS: BP 109/64; PULSE 86; TEMP 98.4; O2SAT 93
[2018-05-30 12:08] LABS: Vitamin B12 527 pg/mL (193-986)
== END 2018-05-30 15:15 | disposition home or self-care (01) ==
LOC: NEDA 15:52 → NEPE 15:52 → NEPGCP 20:24
PROVIDERS: ADMIT Internal Medicine; ATTEND Internal Medicine